=== PATIENT | female | born 1945 | race Caucasian/White ===

== ENCOUNTER 2020-12-05 14:51 | Inpatient (IN) | payer MEDICARE ==
[~2020-12-05] VITALS: Ht 154.9 cm; Wt 74.8 kg
--- NOTE | ~2020-12-05 | PROC ---
[address] [address] PROCEDURE REPORT Name: ARY DUMONT Rain Room: [address] IN .R.#: [id number] Admission: 12/05/20 Attend Phys: Portia Thompson MD Discharge: Date of : 45 Report #: [id number] THIS REPORT FOR: cc: Michael Ferguson MD, Matthew W. MD [facility],Medical Records Staff ~ For GI report, please see the Provation report in Perceptive 7 content. By: 1501Medical Records Staff [facility] /MAUDE
[2020-12-05 14:56] VITALS: BP 153/71
[2020-12-05] MEDS ORDERED: NORVASC10 MG PO (15:00)
[2020-12-05] MEDS ORDERED: HYDRALAZINE 2525 MG PO (15:00)
[2020-12-05] MEDS ORDERED: LISINOPRIL10 MG PO (15:01)
[2020-12-05 16:15] LABS: HEMATOCRIT 38.3 % (37.0-47.0); HEMOGLOBIN 12.8 gm/dL (12.0-15.0); MCH 30.3 pg (26.0-34.0); MCHC 33.4 g/dL (28.0-37.0); MCV 90.6 fL (80.0-100.0); MPV 8.3 fl. (7.2-11.1); NUCLEATED RBCS 0 /100WBC; PLATELET COUNT* 258 thou/uL (150-400); RBC 4.23 mil/uL (4.20-5.00); RDW-CV 13.7 % (10.5-14.5); WBC 10.7 thou/uL (4.0-11.0)
[2020-12-05 16:24] LABS: CALCIUM 8.4 mg/dL (8.5-10.1); CREATININE 0.7 mg/dL (0.6-1.3); POTASSIUM 3.6 mmol/L (3.5-5.1)
[2020-12-05 16:28] LABS: ALBUMIN 4.1 g/dL (3.4-5.0); TOTAL BILIRUBIN 0.5 mg/dL (<0.1-1.0); TOTAL PROTEIN 7.9 g/dL (6.4-8.2)
[2020-12-05 16:32] LABS: URINE BILIRUBIN NEGATIVE (Negative); URINE BLOOD 2+ (Negative); URINE CLARITY CLEAR; URINE COLOR YELLOW; URINE GLUCOSE-RANDOM NEGATIVE (Negative); URINE KETONES 2+ (Negative); URINE LEUKOCYTES-REFLEX NEGATIVE (Negative); URINE NITRITE-REFLEX NEGATIVE (Negative); URINE PROTEIN NEGATIVE (Negative); URINE SPECIFIC GRAVITY 1.025 (1.005-1.030); URINE UROBILINOGEN 0.2 E.U./dl (0.2-1.0)
[2020-12-05 16:49] LABS: CASTS None Seen /LPF (None Seen); CRYSTALS None Seen /LPF (None Seen); SQUAMOUS 0-3 Few /LPF (0-3); URINE RBC 3-10 Few /HPF (0-2); URINE WBC-REFLEX 0-5 Rare /HPF (0-5)
[2020-12-05 17:04] LABS: ABSOLUTE LYMPHOCYTES 0.5 thou/uL (0.8-5.3); ABSOLUTE MONOCYTES 0.3 thou/uL (0.0-1.2); ABSOLUTE NEUTROPHILS 9.8 thou/uL (1.6-8.1); PLATELET ESTIMATE ADEQUATE
[2020-12-05 22:30] VITALS: BP 110/51
[2020-12-05 22:47] VITALS: BP 128/67
[2020-12-06 07:25] VITALS: BP 93/50
--- NOTE | 2020-12-06 08:00 | NUR ---
PATIENT ARRIVED ON FLOOR AT ABOUT 2230. PATIENT ADMISSION HISTORY AND ASSESSMENT WAS COMPLETED CHARTED. PATIENT HAS BEEN NPO. IV FLUIDS WERE STARTED AT 100 ML/HR. PATIENT WAS GIVEN PAIN AND NAUSEA MEDICINE ONCE THIS SHIFT WITH GOOD RELIEF. WILL CONTINUE TO MONITOR.
--- NOTE | 2020-12-06 09:29 | EKG ---
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 : 1945 Requested By: Tristian Sumner Order Number: [id number] MD: Migel Solis Measurements Intervals Boy[place] Rate: 99 P: 59 IL: 132 QRS: 27 QRSD: 99 T: 41 QT: 382 QTc: 491 Interpretive Statements Sinus rhythm Paired ventricular premature complexes Probable left atrial enlargement Anteroseptal infarct, old No previous ECG available for comparison Electronically Signed On 12-06-2020 9:29:05 CDT by Migel Solis [email or web address] <ELECTRONICALLY SIGNED> By: Marquita Solis MD, [facility] 12/06/20 0929 1626 1626 Marquita Solis MD, [facility] /EPI
[2020-12-06 09:53] LABS: ABSOLUTE LYMPHOCYTES 1.7 thou/uL (0.8-5.3); ABSOLUTE NEUTROPHILS 6.4 thou/uL (1.6-8.1); BASOPHILS 0.5 %; EOSINOPHILS 0.2 %; HEMATOCRIT 33.8 % (37.0-47.0); HEMOGLOBIN 11.2 gm/dL (12.0-15.0); LYMPHOCYTES 18.3 %; MCH 30.4 pg (26.0-34.0); MCHC 33.2 g/dL (28.0-37.0); MCV 91.5 fL (80.0-100.0); MONOCYTES 10.7 %; NUCLEATED RBCS 0 /100WBC; PLATELET COUNT* 222 thou/uL (150-400); POLYS 70.3 %; RBC 3.69 mil/uL (4.20-5.00); RDW-CV 13.5 % (10.5-14.5); WBC 9.1 thou/uL (4.0-11.0)
[2020-12-06 10:15] LABS: CALCIUM 7.4 mg/dL (8.5-10.1); CREATININE 0.7 mg/dL (0.6-1.3); POTASSIUM 3.4 mmol/L (3.5-5.1); TOTAL BILIRUBIN 0.5 mg/dL (<0.1-1.0)
[2020-12-06 14:00] VITALS: BP 138/61
--- NOTE | 2020-12-06 14:17 | NUR ---
Pt is A&O. Resides at home with . Independent and active. No DME. No hx of HH or Snf. Pt plans to return home at dc. Anticipate dc tomorrow. GI following.
--- NOTE | 2020-12-06 16:31 | NUR ---
PT REMAINED ALERT AND ORIENTED. PT STATES PAIN AND NAUSEA FEEL A LOT BETTER. TOLERATING CLEAR LIQUID DIET FOR LUNCH. FALL RISK PRECAUTIONS IN PLACE. HOURLY ROUNDING COMPLETED.
[2020-12-07] VITALS (7 sets, daily range): BP systolic 113–156; BP diastolic 53–70
[2020-12-07 06:07] LABS: ABSOLUTE MONOCYTES 0.9 thou/uL (0.0-1.2); ABSOLUTE NEUTROPHILS 4.2 thou/uL (1.6-8.1); BASOPHILS 0.3 %; EOSINOPHILS 0.3 %; HEMATOCRIT 32.5 % (37.0-47.0); HEMOGLOBIN 10.8 gm/dL (12.0-15.0); LYMPHOCYTES 27.9 %; MCH 30.5 pg (26.0-34.0); MCHC 33.3 g/dL (28.0-37.0); MCV 91.6 fL (80.0-100.0); MONOCYTES 12.3 %; MPV 8.9 fl. (7.2-11.1); NUCLEATED RBCS 0 /100WBC; PLATELET COUNT* 203 thou/uL (150-400); POLYS 59.2 %; RBC 3.55 mil/uL (4.20-5.00); RDW-CV 13.9 % (10.5-14.5); WBC 7.1 thou/uL (4.0-11.0)
[2020-12-07 06:19] LABS: ALBUMIN 2.6 g/dL (3.4-5.0); CALCIUM 7.4 mg/dL (8.5-10.1); CREATININE 0.7 mg/dL (0.6-1.3); TOTAL BILIRUBIN 0.6 mg/dL (<0.1-1.0); TOTAL PROTEIN 5.5 g/dL (6.4-8.2)
--- NOTE | 2020-12-07 07:52 | NUR ---
PT SLEPT WELL OVERNIGHT. UP AD JORDEN, HAD SHOWER BEFORE BED. LAC IVF INFUSING PER PUMP. NPO SINCE MIDNIGHT FOR EGD TODAY. ZOFRAN GIVEN HS WITH GOOD RESULT. ABLE TO USE CALL LITE AND MAKE NEEDS KNOWN.
--- NOTE | 2020-12-07 10:13 | CON ---
[address] [address] CONSULTATION Name: ARY DUMONT Room: [address] IN M.R.#: [id number] Admission: 12/05/20 Attend Phys: Portia Thompson MD Discharge: Date of : 45 Report #: [id number] THIS REPORT FOR: cc: Michael Ferguson MD, Matthew W. MD Vardakis, Gregory DO ~ cc: Pj Simental MD, Michael Ferguson MD DATE OF CONSULTATION: 12/06/2020 REFERRING PHYSICIAN: Dr. Simental. REASON FOR CONSULTATION: 1. Abdominal pain. 2. Severe epigastric pain associated with nausea and vomiting. 3. Abnormal CAT scan, suggestive of peripancreatic inflammation at the level of the uncinate process and pancreatic head, of uncertain significance. 4. Age over 50 with the patient never having undergone a colonoscopy in the past (flexible sigmoidoscopy only). 5. Irritable bowel syndrome with diarrhea, well controlled on current dietary regimen. RECOMMENDATIONS: 1. I have already reviewed the patient's CT scan and see the findings noted on the CT scan that suggests there is some peripancreatic stranding. The patient is already scheduled for an abdominal ultrasound, but because of her upper abdominal pain, we will also proceed with an upper endoscopy to evaluate for an upper GI tract source of the same. 2. Depending on the results of her ultrasound and her upper endoscopy, she may need to have additional testing including endoscopic ultrasound as suggested by Dr. Simental. 3. At some point in time, the patient also needs to have a screening colonoscopy since she has never had one done in the past. HISTORY: The patient is a pleasant 75-year-old white female with underlying hypertension and IBS-D, who presented to the hospital with complaints of rather severe epigastric pain, which radiated into her back and it caused nausea, vomiting and diarrhea. She did eat some unusual foods over the weekend just because she had gone to a family gathering and thought maybe this was causing some of her issues. However, this was not the source of her discomfort. She has never had this kind of pain before in the past. She denies complaints of any dysphagia, odynophagia, chronic reflux or indigestion. She does not take any nonsteroidals or any other medications on a regular basis. She denied any hematemesis or any other issues. She does have IBS-D, which is well controlled on her current medical regimen, which is [place] [address] CONSULTATION Name: ARY DUMONT Room: [address] IN ..#: [id number] Admission: 12/05/20 Attend Phys: Portia Thompson MD Discharge: Date of : 45 Report #: [id number] states if she ____ from that, she will have some problem with cramping and diarrhea. She has not had any bleeding. She has never undergone previous studies of her upper GI tract, but she has undergone a flexible sigmoidoscopy 30+ years ago. She has never had a colonoscopy. She has no family history of any problems related to the upper or lower GI tract or problems related to hepatobiliary, gallbladder or pancreas. She is admitted to the hospital for further evaluation and treatment. ALLERGIES: None. MEDICATIONS: Include amlodipine, hydralazine and lisinopril. PAST MEDICAL HISTORY: Remarkable for hypertension, IBS-D. PAST SURGICAL HISTORY: She had previous , otherwise has been healthy. SOCIAL HISTORY: The patient does not smoke or drink. FAMILY HISTORY: Negative. PHYSICAL EXAMINATION: GENERAL: A pleasant 75-year-old white female who is awake and alert. CARDIOPULMONARY: Revealed a regular rate and rhythm. LUNGS: Clear. ABDOMEN: Soft and nontender. No rebound or guarding noted. LABORATORY TEST: From admission revealed a white count of 10.7, hemoglobin 12.8, platelet count of 258,000, MCV is 90.6 and RDW 13.7. Her sodium 139, potassium 3.6, chloride 104, bicarbonate 27, her BUN was 13, creatinine 0.74 and GFR of 82. Total bilirubin 0.5, alkaline phosphatase 84, AST 20, ALT 30, albumin is 4.1. CT scan of the abdomen and pelvis performed with contrast yesterday revealed some peripancreatic stranding at the level of the uncinate and head of the pancreas without any obvious inflammatory mass, abscess or pseudocyst notable. There was no ductal dilation. The gallbladder appeared normal and the remainder of the examination is unremarkable. DISCUSSION: At the present time, the patient has some epigastric pain, has abnormal CAT scan. Agree with abdominal ultrasound and we will proceed with [address] [address] CONSULTATION Name: ARY DUMONT Room: [address] IN M.R.#: [id number] Admission: 12/05/20 Attend Phys: Portia Thompson MD Discharge: Date of : 45 Report #: [id number] upper endoscopy tomorrow as well. I discussed this plan with the patient as well and she is agreeable to the same. <ELECTRONICALLY SIGNED> By: Micky Costello DO 12/07/20 1013 1809 2213Gsharmaine Costello DO /nt
[2020-12-07 12:13] LABS: CALCIUM 7.4 mg/dL (8.5-10.1); CREATININE 0.6 mg/dL (0.6-1.3); POTASSIUM 3.3 mmol/L (3.5-5.1)
[2020-12-07 12:17] LABS: MAGNESIUM 1.9 mg/dL (1.8-2.4); PHOSPHORUS* 2.2 mg/dL (2.5-4.9)
--- NOTE | 2020-12-07 16:11 | NUR ---
Pt to have abd u/s and upper endoscopy tomorrow. No needs anticipated at dc.
--- NOTE | 2020-12-07 18:37 | NUR ---
PT DOWN TODAY FOR EGD, AND WILL HAVE HER GALL BLADDER REMOVED TOMORROWAT 1300. PT WILL BE NPO AT 2400. PT HAS IV FLUIDS INFUSING NS AT 100CC/HR. WILL CONTINUE TO MONITOR PLAN OF CARE.
[2020-12-08 05:14] LABS: ABSOLUTE BASOPHILS 0.1 thou/uL (0.0-0.2); ABSOLUTE EOSINOPHILS 0.1 thou/uL (0.0-0.7); ABSOLUTE LYMPHOCYTES 1.5 thou/uL (0.8-5.3); ABSOLUTE MONOCYTES 0.7 thou/uL (0.0-1.2); BASOPHILS 0.9 %; HEMATOCRIT 32.6 % (37.0-47.0); HEMOGLOBIN 10.9 gm/dL (12.0-15.0); LYMPHOCYTES 24.1 %; MCH 30.5 pg (26.0-34.0); MCHC 33.4 g/dL (28.0-37.0); MCV 91.4 fL (80.0-100.0); MONOCYTES 11.2 %; MPV 8.5 fl. (7.2-11.1); NUCLEATED RBCS 0 /100WBC; PLATELET COUNT* 179 thou/uL (150-400); POLYS 62.8 %; RBC 3.57 mil/uL (4.20-5.00); RDW-CV 13.5 % (10.5-14.5); WBC 6.3 thou/uL (4.0-11.0)
[2020-12-08 05:22] LABS: ALBUMIN 2.8 g/dL (3.4-5.0); CALCIUM 7.7 mg/dL (8.5-10.1); CREATININE 0.5 mg/dL (0.6-1.3); MAGNESIUM 1.9 mg/dL (1.8-2.4); POTASSIUM 3.8 mmol/L (3.5-5.1); TOTAL BILIRUBIN 0.6 mg/dL (<0.1-1.0); TOTAL PROTEIN 5.9 g/dL (6.4-8.2)
--- NOTE | 2020-12-08 08:15 | NUR ---
Alert and oriented x 4. Up independently in the room. She has refused pain meds this shift. She has been NPO since midnight. She did sleep well.
[2020-12-08 08:44] VITALS: BP 123/63
--- NOTE | 2020-12-08 13:13 | NUR ---
Anticipate dc either later today or tomorrow pending surgery today. Goal is home at dc, no needs.
[2020-12-08 18:00] VITALS: BP 113/53
--- NOTE | 2020-12-08 18:12 | NUR ---
PT ARRIVED BACK TO FLOOR ABOUT 1730. PT HEART RATE BOUNCING FROM 30s TO 80s. PACU NURSE IN ROOM. EKG COMPLETED. PTs VITALS STABLE. NOTIFED. TELE STATUS AND MOVED TO TELE FLOOR AT 1810.
[2020-12-08 18:20] VITALS: BP 133/60
--- NOTE | 2020-12-08 19:10 | NUR ---
PT TRANSFERRED TO ROOM 203 AT APPROX 1820 FROM 3W R/T FREQUENT PVC'S AND BRADYCARDIA AFTER HAVING SURGERY TODAY AND NEEDING CARDIAC MONITORING. PT AOX4 BUT SLEEPY FROM ANESTHESIA, NO C/O PAIN.
[2020-12-08 20:00] VITALS: BP 134/60
[2020-12-09] VITALS: BP 125/60
[2020-12-09 04:00] VITALS: BP 148/68
[2020-12-09 04:42] LABS: ABSOLUTE MONOCYTES 0.8 thou/uL (0.0-1.2); ABSOLUTE NEUTROPHILS 5.8 thou/uL (1.6-8.1); BASOPHILS 0.2 %; HEMATOCRIT 32.5 % (37.0-47.0); HEMOGLOBIN 10.8 gm/dL (12.0-15.0); LYMPHOCYTES 13.1 %; MCH 30.6 pg (26.0-34.0); MCHC 33.3 g/dL (28.0-37.0); MCV 91.8 fL (80.0-100.0); MONOCYTES 10.6 %; MPV 9.1 fl. (7.2-11.1); NUCLEATED RBCS 0 /100WBC; PLATELET COUNT* 223 thou/uL (150-400); POLYS 76.1 %; RBC 3.53 mil/uL (4.20-5.00); RDW-CV 13.3 % (10.5-14.5); WBC 7.6 thou/uL (4.0-11.0)
[2020-12-09 05:06] LABS: ALBUMIN 2.6 g/dL (3.4-5.0); CALCIUM 7.6 mg/dL (8.5-10.1); CREATININE 0.7 mg/dL (0.6-1.3); POTASSIUM 3.9 mmol/L (3.5-5.1); TOTAL BILIRUBIN 0.5 mg/dL (<0.1-1.0); TOTAL PROTEIN 5.9 g/dL (6.4-8.2)
[2020-12-09] MEDS ORDERED: CEFUROXIME500 MG PO (07:54)
[2020-12-09 08:00] VITALS: BP 151/73
--- NOTE | 2020-12-09 10:15 | EKG ---
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1945 Requested By: Portia Thompson Order Number: [id number] Reading MD: Eric Pickard Measurements Intervals [place] Rate: 68 P: 59 WV: 125 QRS: 34 QRSD: 105 T: 47 QT: 420 QTc: 447 Interpretive Statements Sinus rhythm Multiple ventricular premature complexes Borderline T abnormalities, anterior leads Compared to ECG 12/05/2020 16:26:13 Myocardial infarct finding no longer present Electronically Signed On 12-09-2020 10:14:49 CDT by Eric Pickard [email or web address] <ELECTRONICALLY SIGNED> By: Eric Pickard MD, [facility] 12/09/20 1014 1757 1757 Eric Pickard MD, [facility] /EPI
[2020-12-09] MEDS ORDERED: OXYCODONE HCL 55 MG PO (10:21)
[2020-12-09 10:55] VITALS: BP 151/73
--- NOTE | 2020-12-09 11:52 | NUR ---
ASSUMED PT CARE AT 0730, PT AOX4, NO C/O PAIN, PT WORKED W/ SURGERY AND HOSPITALIST AND DC ORDERS RECEIVED. IV AND MANAGER TELEMARKETING REMOVED. PT DC'D BY W/ NURSING STAFF AND ALL PAPERWORK AND PERSONAL BELONGINGS TO 'S VEHICLE AT APPROX 1120
--- NOTE | 2020-12-09 17:07 | PATH ---
[address] [address] PATHOLOGY RPT PROCEDURE Name: TIMROSA Rodrigez Room: [address] IN .R.#: [id number] Admission: 12/05/20 Date of : 45 Discharge: 12/09/20 Report #: [id number] Path Case #: [id number] [facility] Accession Number: [id number] . 01 Material submitted: . stomach - ANTRAL BIOPSIES FOR H. PYLORI . 01 Clinical history: . EGD IN OR PANCREATITIS . 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 . (JACKIE:[place]; 12/09/2020) [facility] 12/09/2020 1504 Local . 02 Comment: Special stain: H. pylori immuno . (JACKIE:[place]; 12/09/2020) . 02 Electronically signed: . Sami Vann MD, Pathologist NPI- [id number] . 01 Gross description: . The specimen is submitted in formalin, labeled "Rosa Pisano, antral biopsy". Received are 2 segments of pale granados tissue ranging in size from 0.4 to 0.5 cm in maximum dimensions. The specimen is submitted in cassette A1. ([facility]; 12/08/2020) NRI/NRI 12/08/2020 1107 Local . 02 Pathologist provided ICD-10: K29.50 . 02 CPT . 953996, E22703 Specimen Comment: A courtesy copy of this report has been sent to [phone] Specimen Comment: [phone], Specimen Comment: Report sent to , DR NATION / DR LIRA Performed at: [address] [facility] [id number] [place] [address] PATHOLOGY RPT PROCEDURE Name: ROSA PISANO Room: [address] IN [facility].#: [id number] Admission: 12/05/20 Date of : 45 Discharge: 12/09/20 Report #: [id number] Path Case #: [id number] MD Ruiz Alvarez MD Phone: [phone] Performed at: 02 [facility] [place] [address], [place], [place] [id number] MD Sami Vann MD Phone: [phone]
--- NOTE | 2020-12-10 13:41 | OP ---
[address] [address] OPERATIVE REPORT Name: ARY DUMONT Room: [address] IN M.R.#: [id number] Admission: 12/05/20 Attend Phys: Portia Thompson MD Discharge: 12/09/20 Date of : 45 Report #: [id number] THIS REPORT FOR: cc: Michael Ferguson MD, Matthew W. MD Gazzetta, Joshua D. DO ~ cc: Michael Ferguson MD DATE OF SURGERY: 12/08/2020 PREOPERATIVE DIAGNOSIS: Acute cholecystitis and cholelithiasis. POSTOPERATIVE DIAGNOSIS: Acute cholecystitis and cholelithiasis. SURGEON: Jah Kendrick DO COSURGEON: Jet Wolfe DO, PGY5. PAPER SPOOLER: Hemant Melendez, PGY1. SURGERY PERFORMED: Laparoscopic cholecystectomy. ANESTHESIA: General and regional. ESTIMATED BLOOD LOSS: 10 mL. SPECIMEN: Gallbladder. COMPLICATIONS: None. FINDINGS: Acute cholecystitis with significant amount of pericholecystic and perihepatic fluid with significant gallbladder wall thickening. INDICATIONS: The patient is a 75-year-old female who presented with complaint of epigastric abdominal pain associated with nausea and vomiting. Workup did show some peripancreatic inflammation at the level of the uncinate process. She then underwent EGD with the GI team and the surgery team was consulted to evaluate for acute cholecystitis. Ultrasound was obtained, which did reveal evidence of acute cholecystitis. We then proceeded to discuss the risks, benefits and alternatives of surgery at length with her and she agreed to proceed with surgery. DESCRIPTION OF PROCEDURE: After consent was obtained, the patient was taken to the operating room and placed in the supine position. SCDs were applied to bilateral lower extremities. A safety belt placed across the patient's waist. Two grams of Ancef was given for surgical prophylaxis. [place] [address] OPERATIVE REPORT Name: ARY DUMONT Room: [address]#: [id number] Admission: 12/05/20 Attend Phys: Portia Thompson MD Discharge: 12/09/20 Date of : 45 Report #: [id number] general endotracheal anesthesia without any complications. The patient's abdomen was prepped and draped in the standard sterile fashion. Timeout was performed confirming the patient and procedure. An 11-blade scalpel was used to make a vertical incision just above the umbilicus, electrocautery used for hemostasis and dissected down to the level of fascia. Once the fascia was encountered, it was scored with electrocautery, grasped between 2 Kochers and elevated. Hemostat was used to enter the peritoneum. Two stitches of 0 Vicryl placed on either side of the fascia. A 5 mm Yo trocar was inserted into the abdomen. Insufflation was initiated. Intra-abdominal contents were inspected. There was a significant amount of perihepatic fluid in the right upper quadrant. We then placed the patient in reverse Trendelenburg, rotated towards the left. Three more trocars were placed, one subxiphoid, two in the right upper quadrant under direct visualization. Gallbladder was visualized. It was a very edematous and dilated gallbladder consistent with acute cholecystitis. We then placed a long aspiration needle within the gallbladder. We aspirated about 60 mL of hydropic fluid. The gallbladder was then grasped and elevated. Attention was turned towards Zay's pouch and the cystic artery and cystic duct were carefully isolated using a combination of blunt dissection and dissection with electrocautery. Once both structures were completely isolated and seen going up into the gallbladder, critical view of safety was obtained. The hepatocystic triangle was cleared of all fibrofatty tissue. The hepatic place could be seen in the hepatocystic triangle from the lateral and medial side. Three clips were placed on the proximal cystic duct, one on the distal cystic artery. Two clips were placed on the distal cystic duct, one on the distal cystic artery. Both structures were cut. The gallbladder was then carefully dissected off the bed of the liver using hook electrocautery. Once the gallbladder was dissected free, it was placed in laparoscopic EndoCatch bag. The liver bed was inspected and hemostasis was ensured with Bovie electrocautery. At this point, the right upper quadrant was irrigated copiously. All fluid was suctioned out. Insufflation was let down. All trocars sites were examined. Trocars were removed under direct visualization. The gallbladder and its contents were removed from the supraumbilical trocar site. Supraumbilical fascia was reapproximated with 1 stitch of 0 Vicryl in a ujsmou-dy-chxog fashion. Subcutaneous tissue reapproximated with 3-0 Vicryl. All skin incisions reapproximated with 4-0 Monocryl in subcuticular fashion. All needle, sponge and instrument counts were correct x 2 at the end of the case. Sterile skin glue applied to all incisions. The [place] [address] OPERATIVE REPORT Name: ARY DUMONT Room: [address]#: [id number] Admission: 12/05/20 Attend Phys: Portia Thompson MD Discharge: 12/09/20 Date of : 45 Report #: [id number] anesthesia and transferred to PACU in stable condition. The gallbladder did have multiple large stones within it. It was sent for pathologic evaluation. <ELECTRONICALLY SIGNED> By: Jah Kendrick DO 12/10/20 1341 1510 1557Jah Kendrick DO /nt
--- NOTE | 2020-12-12 18:06 | PATH ---
[address] [address] PATHOLOGY RPT PROCEDURE Name: ARY DUMONT Rain Room: [address] IN [facility].#: [id number] Admission: 12/05/20 Date of : 45 Discharge: 12/09/20 Report #: [id number] Path Case #: [id number] [facility] Accession Number: [id number] . 01 Material submitted: . gallbladder - GALLBLADDER . 01 Clinical history: . LAPAROSCOPIC CHOLECYSTECTOMY CHOLELITHIASIS PANCREATITIS . 02 Diagnosis: Gallbladder: - Chronic and acute erosive cholecystitis and cholelithiasis with benign and edematous lymph node. (JACKIE/db; 12/12/2020) [facility] 12/12/2020 1558 Local . 02 Electronically signed: . Sami Vann MD, Pathologist NPI- [id number] . 01 Gross description: . Fixative: Formalin Labeled: Gallbladder Specimen received: Intact gallbladder Dimensions: 12.2 x 3.7 x 3.2 cm Serosa: Rifton-elise, shaggy Lymph node: 2.2 x 1.1 x 0.6 Mucosa: Velvety, dark brown Average wall thickness: 0.1 cm Calculi: Identified displaying a light brown and multifaceted appearance Abnormalities: None identified . Staffing Associate body, fundus, and the cystic duct margin in cassette A1. The lymph node is bisected and submitted in cassette A2. ([facility]; 12/09/2020) QA/QA 12/09/2020 1559 Local . 02 Pathologist provided ICD-10: K80.12 . 02 CPT . 664250 Specimen Comment: A courtesy copy of this report has been sent to [phone] Specimen Comment: 1974, [place] [address] PATHOLOGY RPT PROCEDURE Name: ARY DUMONT Room: [address]#: [id number] Admission: 12/05/20 Date of : 45 Discharge: 12/09/20 Report #: [id number] Path Case #: [id number] Specimen Comment: Report sent to , DR LIRA / DR NATION Performed at: 01 [facility] Ishaan Varner [address] [facility] [address], [place], [place] [id number] MD Ruiz Alvarez MD Phone: [phone] Performed at: 02 [facility] [address], [place], [place] [id number] MD Sami Vann MD Phone: [phone]
== END 2020-12-09 11:19 | disposition home or self-care (01) | DRG 417 ==
LOC: M.ERS 14:51 → M.3W 18:16 → M.TBA-ER 18:16 → M.3W 22:37 → M.2W 12-08 18:27
PROVIDERS: Emergency Medicine Emergency Medical Services; Internal Medicine; Internal Medicine Gastroenterology; Surgery; ADMIT Internal Medicine; ATTEND Internal Medicine
PROC: 0DB78ZX Excision of Stomach, Pylorus, Via Natural or Artificial Opening Endoscopic, Diagnostic (ICD-10-PCS; principal; 2020-12-07)
PROC: 0FT44ZZ Resection of Gallbladder, Percutaneous Endoscopic Approach (ICD-10-PCS; 2020-12-08)
DX: K80.00 Calculus of gallbladder with acute cholecystitis without obstruction (principal); K85.10 Biliary acute pancreatitis without necrosis or infection; E44.1 Mild protein-calorie malnutrition; I10 Essential (primary) hypertension; K31.9 Disease of stomach and duodenum, unspecified; R74.01 Elevation of levels of liver transaminase levels; Z20.822 Contact with and (suspected) exposure to COVID-19; D64.9 Anemia, unspecified; K58.9 Irritable bowel syndrome, unspecified; Z79.899 Other long term (current) drug therapy; Z88.8 Allergy status to other drugs, medicaments and biological substances; Z68.31 Body mass index [BMI] 31.0-31.9, adult